=== PATIENT | male | born 1935 ===

== ENCOUNTER 2019-08-06 09:08 | Outpatient (REF) | payer MEDICARE, BC, SELFPAY ==
--- NOTE | 2019-08-06 08:30 | SKI_PTH ---
PATIENT: MANDA RILEY LOC: [facility] U#:[id number] AGE/SX: 83/M ROOM: RE08/06/[address]: Brian Montoya MD : 1935 BED: DIS: 08/06/2019 SPEC #: [id number] RECD: 08/07/19 11:49 STATUS: WILSON REGifty #: [id number] KADI: 08/06/19 08:[address]: Brian Montoya DEPT: Surgical Specimen RECD BY: Daniel Gomez ENTERED: 08/07/19 11:52 SP TYPE: GEOVANI BLOCK DR: Dick Soto Tissues: 1 - SKIN BIOPSY(SHAVE/PUNCH) Procedures: SKIN LEVEL 4 Comments: [id number]
== END 2019-08-06 09:28 ==
LOC: LBN 09:08
PROVIDERS: PCP Family Medicine; Visit Provider Otolaryngology
DX: L82.0 Inflamed seborrheic keratosis (principal)
CPT/HCPCS: 88305

== ENCOUNTER 2019-09-14 15:21 | Outpatient (REF) | payer MEDICARE, BC, SELFPAY ==
[2019-09-14 15:59] LABS: HCT 27.9 % (40.0-50.0); HGB 8.3 g/dL (13.5-17.5); Mean Corp. HGB Concentration 29.7 g/dL (32.0-36.0); Mean Corpuscular Hemoglobin 31.4 pg (27.0-33.0); Mean Corpuscular Volume 105.7 fL (80-95); Mean Platelet Volume 11.1 fL (8.0-11.0); Platelet Count 149 x1000/uL (130-400); RBC 2.64 m/cumm (4.50-6.00); RBC Distribution Width 19.5 % (11.8-14.1)
[2019-09-14 16:33] LABS: White Blood Cell Count 99.92 k/cumm (4.4-10.8)
== END 2019-09-14 15:41 ==
LOC: LBN 15:21
PROVIDERS: PCP Family Medicine; Visit Provider Family Medicine
DX: D64.9 Anemia, unspecified (principal); J18.1 Lobar pneumonia, unspecified organism
CPT/HCPCS: 85027